=== PATIENT | male | born 1950 | race African-American/Black ===

== ENCOUNTER 2019-02-01 15:12 | Emergency (ER) | payer OTHER, MEDICARE ==
--- NOTE | 2019-02-01 15:35 | ER Document Report ---
ED Medical Screen (RME) - General Chief Complaint: Abdominal Pain Stated Complaint: BLOOD IN URINE Time Seen by Provider: 02/01/19 15:33 Primary Care Provider: LISETH MONROE PA [Primary Care Provider] - Follow up as needed Mode of Arrival: Ambulatory Information source: Patient TRAVEL OUTSIDE OF THE [place] IN LAST 30 DAYS: No - HPI Patient complains to provider of: hematuria Onset: This morning - pt. started with hematuria and dysuria this am - Related Data Allergies/Adverse Reactions: No Known Allergies Allergy (Unverified 02/01/19 15:16) Physical Exam - Vital signs Vitals: Temp Pulse Resp BP Pulse Ox 100.6 F H 112 H 18 159/84 H 94 02/01/19 15:14 02/01/19 15:14 02/01/19 15:14 02/01/19 15:14 02/01/19 15:14 Course - Vital Signs Vital signs: Temp Pulse Resp BP Pulse Ox 100.6 F H 112 H 18 159/84 H 94 02/01/19 15:14 02/01/19 15:14 02/01/19 15:14 02/01/19 15:14 02/01/19 15:14 Doctor's Discharge - Discharge Referrals: LISETH MONROE PA [Primary Care Provider] - Follow up as needed
[2019-02-01 15:56] LABS: ABSOLUTE BASOPHILS # (AUTO) 0.1 10^3/uL (0.0-0.2); ABSOLUTE EOSINOPHILS # (AUTO) 0.1 10^3/uL (0.0-0.6); ABSOLUTE LYMPHOCYTES (AUTO) 1.5 10^3/uL (0.5-4.7); ABSOLUTE MONOCYTES (AUTO) 0.9 10^3/uL (0.1-1.4); ABSOLUTE NEUT (AUTO) 11.7 10^3/uL (1.7-8.2); BASOPHILS % (AUTO) 0.6 % (0-2); EOSINOPHILS % (AUTO) 0.4 % (0-6); HEMATOCRIT 40.7 % (37.9-51.0); HEMOGLOBIN 13.7 g/dL (13.5-17.0); LYMPHOCYTES % (AUTO) 10.2 % (13-45); MEAN CORPUSCULAR HEMOGLOBIN 29.4 pg (27.0-33.4); MEAN CORPUSCULAR HGB CONC 33.7 g/dL (32.0-36.0); MEAN CORPUSCULAR VOLUME 87 fl (80-97); MONOCYTES % (AUTO) 6.4 % (3-13); PLATELET COUNT 192 10^3/uL (150-450); RED BLOOD COUNT 4.66 10^6/uL (4.35-5.55); RED CELL DISTRIBUTION WIDTH 13.4 % (11.5-14.0); SEGMENTED NEUTROPHILS % (AUTO) 82.4 % (42-78); TOTAL CELLS COUNTED % (AUTO) 100 %; WHITE BLOOD COUNT 14.2 10^3/uL (4.0-10.5)
[2019-02-01 16:11] LABS: ALANINE AMINOTRANSFERASE 36 U/L (21-72); ALBUMIN 4.3 g/dL (3.5-5.0); ALKALINE PHOSPHATASE 106 U/L (38-126); ANION GAP 10 (5-19); ASPARTATE AMINO TRANSFERASE 26 U/L (17-59); BILIRUBIN,DIRECT 0.2 mg/dL (0.0-0.4); BILIRUBIN,TOTAL 1.1 mg/dL (0.2-1.3); BLOOD UREA NITROGEN 9 mg/dL (7-20); CALCIUM 9.9 mg/dL (8.4-10.2); CARBON DIOXIDE 27 mmol/L (22-30); CHLORIDE 102 mmol/L (98-107); GLUCOSE 140 mg/dL (75-110); POTASSIUM 3.9 mmol/L (3.6-5.0); SODIUM 139.2 mmol/L (137-145); TOTAL PROTEIN 7.6 g/dL (6.3-8.2)
[2019-02-01 16:12] LABS: APPEARANCE,URINE CLOUDY; BILIRUBIN,URINE NEGATIVE (NEGATIVE); COLOR,URINE AMBER; GLUCOSE, URINE NEGATIVE (NEGATIVE); KETONES,URINE NEGATIVE (NEGATIVE); LEUKOCYTE ESTERASE,URINE LARGE (NEGATIVE); NITRITE,URINE NEGATIVE (NEGATIVE); PROTEIN,URINE 100 mg/dL (NEGATIVE); URINE SPECIFIC GRAVITY 1.016
[2019-02-01] MEDS ORDERED: ACETAMINOPHEN 325 MG TABLET PO ONE (19:13)
[2019-02-01] MEDS ORDERED: CEPHALEXIN 500 MG CAPSULE PO ONE (19:13)
--- NOTE | 2019-02-01 19:15 | ER Document Report ---
ED General - General Chief Complaint: Abdominal Pain Stated Complaint: BLOOD IN URINE Time Seen by Provider: 02/01/19 15:33 Primary Care Provider: LISETH MONROE PA [PHYSICIAN [employer]] - Follow up tomorrow Mode of Arrival: Ambulatory Notes: Patient is a 68-year-old male with past medical history of essential hypertension who presents with complaints of 24 hours of hematuria, urinary tito quency and pain with urination. He also reports that he is a mild, throbbing, intermittent discomfort to his left flank although states that this is quite mild and not currently present. Patient denies history of similar symptoms in the past. Nothing seems to improve or worsen his symptoms. He notes that he did not know he had a fever prior to coming to the hospital today. Has not had any vomiting, confusion, weakness or numbness. Has not seen his primary care physician regarding today's concerns. TRAVEL OUTSIDE OF THE [place] IN LAST 30 DAYS: No - Related Data Allergies/Adverse Reactions: No Known Allergies Allergy (Unverified 02/01/19 15:16) Past Medical History - General Information source: Patient - Social History Smoking Status: Never Smoker Frequency of alcohol use: None Drug Abuse: None Lives with: Spouse/Significant other Family History: Reviewed & Not Pertinent Patient has suicidal ideation: No Patient has homicidal ideation: No - Past Medical History Cardiac Medical History: Reports: Hx Hypertension Renal/ Medical History: Denies: Hx Peritoneal Dialysis GI Medical History: Reports: Hx Gastroesophageal Reflux Disease Past Surgical History: Reports: Hx Abdominal Surgery Review of Systems - Review of Systems Notes: Constitutional: Negative for fever. HENT: Negative for sore throat. Eyes: Negative for visual changes. Cardiovascular: Negative for chest pain. Respiratory: Negative for shortness of breath. Gastrointestinal: Positive for mild suprapubic abdominal pain Genitourinary: Positive for dysuria and hematuria Musculoskeletal: Negative for back pain. Skin: Negative for rash. Neurological: Negative for headaches, weakness or numbness. 10 point ROS negative except as marked above and in HPI. Physical Exam - Vital signs Vitals: Temp Pulse Resp BP Pulse Ox 100.6 F H 112 H 18 159/84 H 94 02/01/19 15:14 02/01/19 15:14 02/01/19 15:14 02/01/19 15:14 02/01/19 15:14 Interpretation: Hypertensive, Tachycardic, Febrile Notes: PHYSICAL EXAMINATION: GENERAL: Well-appearing, well-nourished and in no acute distress. HEAD: Atraumatic, normocephalic. EYES: Pupils equal round and reactive to light, extraocular movements intact, sclera anicteric, conjunctiva are normal. ENT: nares patent, oropharynx clear without exudates. Moist mucous membranes. NECK: Normal range of motion, supple without lymphadenopathy LUNGS: Breath sounds clear to auscultation bilaterally and equal. No wheezes rales or rhonchi. HEART: Regular rate and rhythm without murmurs ABDOMEN: Soft, nontender, normoactive bowel sounds. No guarding, no rebound. No masses appreciated. EXTREMITIES: Normal range of motion, no pitting or edema. No cyanosis. NEUROLOGICAL: No focal neurological deficits. Moves all extremities spontaneou sly and on command. PSYCH: Normal mood, normal affect. SKIN: Warm, Dry, normal turgor, no rashes or lesions noted. Course - Re-evaluation Re-evalutation: 02/01/19 19:15 Presentation is most consistent with acute pyelonephritis. History is not consistent with an infected stone as patient has no significant pain, describes the pain as being in the suprapubic and left flank region although not present at the time of my exam and his main discomfort is actually pain with urination. Laboratories do demonstrate a large amount of white blood cells in the urine as well as bacteria. Patient has had constitutional symptoms at home as well as a fever. CVA tenderness is present on exam. The remainder laboratories are relatively unremarkable without evidence of renal dysfunction. I do not suspect an acute appendicitis, biliary pathology, pancreatitis, intra-abdominal abscess, or tubo-ovarian abscess based on history and examination. Patient has been started on oral cephalexin here in the emergency department. Patient is able to tolerate oral intake without difficulty. Will be discharged home on 7 day course of cephalexin. A urine culture has been sent. Strict return precautions and follow-up recommendations have been discussed at length. - Vital Signs Vital signs: Temp Pulse Resp BP Pulse Ox 97.9 F 96 18 151/88 H 99 02/01/19 20:16 02/01/19 20:16 02/01/19 20:16 02/01/19 20:16 02/01/19 20:16 - Laboratory Result Diagrams: 02/01/19 15:38 02/01/19 15:38 Laboratory results interpreted by me: 02/01/19 02/01/19 02/01/19 15:38 15:38 15:38 WBC 14.2 H Seg Neutrophils % 82.4 H Lymphocytes % 10.2 L Absolute Neutrophils 11.7 H Glucose 140 H Urine Protein 100 H Urine Blood LARGE H Urine Urobilinogen 4.0 H Ur Leukocyte Esterase LARGE H Discharge - Discharge Clinical Impression: Pyelonephritis, Dysuria Condition: Good Disposition: HOME, SELF-CARE Additional Instructions: You have been diagnosed with a condition called pyelonephritis which is an infection involving your kidneys and bladder. You have been given a dose of antibiotics here in the emergency department to help begin to treat this infection. Your also being sent home on antibiotics. Complete the course even if you feel better. Please return if you have persistent vomiting, pass out, have worsening pain, become unable to tolerate fluids, or have any other symptoms that are concerning to you. Please follow-up with your primary care physician in the next 24-48 hours. They may wish to consider a urology ref erral. Prescriptions: RX: Cephalexin Monohydrate [Keflex 500 mg Capsule] 500 mg PO Q6H 7 Days capsule Referrals: LISETH MONROE PA [PHYSICIAN [employer]] - Follow up tomorrow
[2019-02-01 20:18] VITALS: BP 151/88
== END 2019-02-01 20:20 | disposition home or self-care (01) ==
LOC: ER 15:12
DX: N12 Tubulo-interstitial nephritis, not specified as acute or chronic (principal); R31.9 Hematuria, unspecified; I10 Essential (primary) hypertension; R50.9 Fever, unspecified
CPT/HCPCS: 36415; 80053; 81001; 85025; 87086; 87088; 87186; 99284